=== PATIENT | female | born 1980 | race Hispanic/Latino ===

== ENCOUNTER 2023-04-19 05:13 | Emergency (ER) | payer OTHER ==
--- OUTSIDE RECORDS SUMMARY | 2023-04-19 05:15 | XMS REPORT | Continuity of Care Document ---
Author Name Unknown Address [address] [facility] [address] [place] [id number] [facility] thconnect Address [address] [facility] [address] [place] [address] Care Team Providers Care Director Credit Risk Name Role Phone GC_CPC_WalkInSchedul Attending Clinician Unavail able GC_GCBZW_Kadiyala_S Attending Clinician HONG Weinberg Attending Clinician Unavailable LAB90 Attending Clinician Unavailable Rodrigo GONSALVES, Essence Jackson Attending Clinician [phone] GC_CPC_WalkInSchedul Admitting Clinician Unavail able GC_GCBZW_Kadiyala_S Admitting Clinician Unavaila ble Payers Payer Name Policy Type Policy Number Effective Date Expirati on Date Source KEIRY MAILE SILVER $30 COPAY [id number] PLUS [id number] 2021 00:00:00 Encounters Start Date/Time End Date/Time Encounter Type Admission Type Attending [facility] Care Department Encounter ID Source 2023-04-09 00:00:2023-04-09 00:00:00 Outpatient GC_CPC_Walk InSchedul PRIV PRIV [id number] [facility] 2023-03-13 00:00:00 2023-03-13 00:00:00 Outpatient GC_GCBZW_Ka diyala_S PRIV PRIV [id number] [facility] 2023-03-12 00:00:00 2023-03-12 00:00:00 Outpatient GC_GCBZW_Ka diyala_S PRIV PRIV [id number] [facility] 2021-12-27 12:45:00 2021-12-27 12:45:00 Outpatient MAURILIO, HONG LU LEIGH [id number] Lu Anton 2021-11-29 09:05:00 2021-11-29 09:05:00 Outpatient LAB90 LU LEIGH [id number] Lu Anton 2021-11-28 13:30:00 2021-11-28 14:00:00 Office Visit Essence Wallace Herron [id number] Lu Anton
--- NOTE | 2023-04-19 06:13 | ER ---
Nurse's Notes [facility] Name: Rainer Bardales Age: 42 yrs Sex: Female : 1980 Arrival Date: 04/19/2023 Time: 05:13 Bed 14 Private MD: Diagnosis: Photokeratitis, bilateral Presentation: 04/19 05:28 Chief complaint: Patient states: I was woken from my sleep with a chest tightness. When jb4 I went to the bath room I noticed my eyes were red and watery. The light hurts and Its hard to keep my eyes open. Coronavirus screen: At this time, the client does not indicate any symptoms associated with coronavirus-19. Ebola Screen: No symptoms or risks identified at this time. Mechanism of Injury: No Mechanism of Injury. The patient denies any loss of vision. Initial Sepsis Screen: Does the patient meet any 2 criteria? No. Patient's initial sepsis screen is negative. Does the patient have a suspected source of infection? No. Patient's initial sepsis screen is negative. Risk Assessment: Do you want to hurt yourself or someone else? Patient reports no desire to harm self or others. Onset of symptoms was April 19, 2023. Transition of care: patient was not received from another setting of care. 05:28 Method Of Arrival: Ambulatory jb4 05:28 Acuity: JEFF 4 jb4 Historical: - Allergies: 05:31 No Known Allergies; jb4 - Home Meds: 05:31 None [Active]; jb4 - PMHx: 05:31 None; jb4 - PSHx: 05:31 Tummy tuck; jb4 - Immunization history:: Adult Immunizations up to date. - Social history:: Smoking status: Patient denies any tobacco usage or history of. - Family history:: not pertinent. Screenin:[address] [facility] ED Fall Risk Assessment (Adult) History of falling in the last 3 months, jb4 including since admission No falls in past 3 months (0 pts) Confusion or Disorientation No (0 pts) Score/Fall Risk Level 0 - 2 = Low Risk Oriented to surroundings, Maintained a safe environment. Abuse screen: Denies threats or abuse. Nutritional screening: No deficits noted. Tuberculosis screening: No symptoms or risk factors identified. Assessment: 05:45 General: Appears in no apparent distress. comfortable, Behavior is calm, cooperative. jb4 Pain: Complains of pain in right eye and left eye Pain does not radiate. Pain currently is 6 out of 10 on a pain scale. Neuro: Level of Consciousness is awake, alert, obeys commands, Oriented to person, place, time, situation. Cardiovascular: Patient's skin is warm and dry. Respiratory: Airway is patent Respiratory effort is even, unlabored, Respiratory pattern is regular, symmetrical. GI: No signs and/or symptoms were reported involving the gastrointestinal system. : No signs and/or symptoms were reported regarding the genitourinary system. EENT: Eyes are tearing on outer aspect of conjuctiva of right eye, iris of right eye, inner aspect of conjuctiva of right eye, outer aspect of conjuctiva of left eye, iris of left eye and inner aspect of conjunctiva of left eye Sclera/Cornea are reddened in outer aspect of conjuctiva of right eye, iris of right eye, inner aspect of conjuctiva of right eye, outer aspect of conjuctiva of left eye, iris of left eye and inner aspect of conjunctiva of left eye. Derm: Skin is intact, Skin is pink, warm \T\ dry. Musculoskeletal: Circulation, motion, and sensation intact. Range of motion: intact in all extremities. Vital Signs: 05:28 BP 134 / 93; Pulse 67; Resp 16; Temp 98.8(O); Pulse Ox 97% on R/A; Weight 77.11 kg; jb4 Height 5 ft. 4 in. ; Pain 1/10; 05:28 Body Mass Index 29.18 (77.11 kg, 162.56 cm) 4 05:28 Pain Scale: Adult jb4 ED Course: 05:14 Patient arrived in ED. jj6 05:31 Triage completed. jb4 05:31 Arm band placed on right wrist. jb4 05:41 Niraj Ji MD is Attending Physician. sp4 05:45 Patient has correct armband on for positive identification. Bed in low position. Call jb4 light in reach. Side rails up X 1. 05:45 No provider procedures requiring assistance completed. Patient did not have IV access jb4 during this emergency room visit. 06:12 Cameron Medley MD is Referral Physician. sp4 Administered Medications: 06:07 Drug: Ibuprofen PO 800 mg PO once Route: PO; jb4 06:07 Not Given (Physician Discretion): [id number] mg PO once jb4 06:07 Drug: Tetracaine Ophthalmic Drops 0.5 % 1 drops Ophthalmic once {Note: administered by jb4 ER provider.} Route: Ophthalmic; Site: both eyes; Medication: 05:45 VIS not applicable for this client. jb4 Outcome: 06:12 Discharge ordered by . sp4 06:24 Discharged to home ambulatory, jb4 06:24 Condition: stable 06:24 Discharge instructions given to patient, Instructed on discharge instructions, follow up and referral plans. medication usage, Demonstrated understanding of instructions, follow-up care, medications, Prescriptions given X 2, 06:24 Patient left the ED. jb4 Signatures: Luis Trotter RN RN jb4 Hemalatha Ledesma jj6 Niraj Ji MD MD sp4
--- NOTE | 2023-04-19 06:13 | EDPHYS ---
Physician Documentation [facility] Name: Rainer Bardales Age: 42 yrs Sex: Female : 1980 Arrival Date: 04/19/2023 Time: 05:13 Bed 14 Private MD: ED Physician Niraj Ji HPI: 04/19 05:41 This 42 yrs old Female presents to ER via Ambulatory with complaints of Eye sp4 Pain, Eye Swelling, Drainage From Eye. 06:09 Patient presents with bilateral eye redness pain and tearing on awakening this morning. 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 This is the first episode of this type of problem for the patient. . Historical: - Allergies: 05:31 No Known Allergies; jb4 - Home Meds: 05:31 None [Active]; jb4 - PMHx: 05:31 None; jb4 - PSHx: 05:31 Tummy tuck; jb4 - Immunization history:: Adult Immunizations up to date. - Social history:: Smoking status: Patient denies any tobacco usage or history of. - Family history:: not pertinent. ROS: 06:09 Constitutional: Negative for fever, chills, and weight loss, Eyes: Positive bilateral sp4 eye pain and irritation and tearing 06:09 All other systems are negative, Exam: 06:09 Visual Acuity: Visual acuity is within normal limits. sp4 06:09 Constitutional: This is a well developed, well nourished patient who is awake, alert, and in no acute distress. Head/Face: Normocephalic, atraumatic. Eyes: Pupils equal round and reactive to light, extra-ocular motions intact. Lids and lashes normal. Conjunctiva injected bilaterally, bilateral conjunctival erythema redness bilateral tearing, negative corneal ulcers or lesions. ENT: Nares patent. No nasal discharge, no septal abnormalities noted. Tympanic membranes are normal and external auditory canals are clear. Oropharynx with no redness, swelling, or masses, exudates, or evidence of obstruction, uvula midline. Mucous membranes moist. Neck: Trachea midline, no thyromegaly or masses palpated, and no cervical lymphadenopathy. Supple, full range of motion without nuchal rigidity, or vertebral point tenderness. Chest/axilla: Normal chest wall appearance and motion. Nontender with no deformity. No lesions are appreciated. Cardiovascular: Regular rate and rhythm with a normal S1 and S2. No gallops, murmurs, or rubs. Normal PMI, no JVD. No pulse deficits. Respiratory: Lungs have equal breath sounds bilaterally, clear to auscultation and percussion. No rales, rhonchi or wheezes noted. No increased work of breathing, no retractions or nasal flaring. Abdomen/GI: Soft, non-tender, with normal bowel sounds. No distension or tympany. No guarding or rebound. No evidence of tenderness throughout. Back: No spinal tenderness. No costovertebral tenderness. Skin: Warm, dry with normal turgor. Normal color with no rashes, no lesions, and no evidence of cellulitis. MS/ Extremity: Pulses equal, no cyanosis. Neurovascular intact. Full, normal range of motion. Neuro: Awake and alert, GCS 15, oriented to person, place, time, and situation. Cranial nerves II-XII grossly intact. Motor strength 5/5 in all extremities. Sensory grossly intact. Psych: Awake, alert, with orientation to person, place and time. Behavior, mood, and affect are within normal limits Vital Signs: 05:28 BP 134 / 93; Pulse 67; Resp 16; Temp 98.8(O); Pulse Ox 97% on R/A; Weight 77.11 kg; jb4 Height 5 ft. 4 in. ; Pain 1/10; 05:28 Body Mass Index 29.18 (77.11 kg, 162.56 cm) [facility] 05:28 Pain Scale: Adult [facility] MDM: 06:00 Patient medically screened. sp4 06:09 Differential diagnosis: Corneal abrasion of Corneal ulcer of Foreign body in Acute sp4 iritis of Acute glaucoma in Ultraviolet keratitis in both eyes. Data reviewed: vital signs, nurses notes. ED course: Patient will be prescribed tobramycin ophthalmic solution every 4 hours to prevent bacterial conjunctivitis and for eye lubrication. . Administered Medications: 06:07 Drug: Ibuprofen PO 800 mg PO once Route: PO; [facility] 06:07 Not Given (Physician Discretion): [id number] mg PO once [facility] 06:07 Drug: Tetracaine Ophthalmic Drops 0.5 % 1 drops Ophthalmic once {Note: administered by [facility] ER provider.} Route: Ophthalmic; Site: both eyes; Disposition Summary: 04/19/23 06:12 Discharge Ordered Problem: new sp4 Symptoms: have improved sp4 Condition: Stable sp4 Diagnosis - Photokeratitis, bilateral sp4 Followup: sp4 - With: Cameron Medley MD - When: 2 - 3 days - Reason: Recheck today's complaints Discharge Instructions: - Discharge Summary Sheet sp4 - Ultraviolet Keratitis, [id number] sp4 Forms: - Patient Portal Instructions sp4 Prescriptions: - tobramycin 0.3 % Ophthalmic drops - instill 2 drop OPHTHALMIC route every 4 hours for 5 days for 5 days; 5 sp4 milliliter; Refills: 0, Product Selection Permitted - Ibuprofen 800 mg Oral Tablet - take 1 tablet ORAL route every 8 hours As needed take with food; 30 tablet; sp4 Refills: 0, Product Selection Permitted Signatures: Luis Trotter RN RN jb4 Niraj Ji MD MD sp4
[2023-04-19] MEDS ORDERED: TETRACAINE HCL 0.5% 5 ML OPTH ONE (06:15)
[2023-04-19] MEDS ORDERED: DIPHENHYDRAMINE 25 MG TAB/CAP ONE (06:18)
[2023-04-19] MEDS ORDERED: IBUPROFEN 400 MG TAB ONE (06:19)
[2023-04-19 06:30] VITALS: BP 134/93; TEMP 98.8; O2SAT 97
== END 2023-04-19 06:24 | disposition home or self-care (01) ==
LOC: ER 05:13
DX: H16.133 Photokeratitis, bilateral (principal)
CPT/HCPCS: 99283